=== PATIENT | female | born 1965 | race African-American/Black ===

== ENCOUNTER 2018-04-23 22:47 | Emergency (ER) | payer SELFPAY ==
[2018-04-23 23:00] VITALS: BP 149/73; PULSE 98; TEMP 98.1; BMI 27.4
--- NOTE | 2018-04-23 23:17 | PDOC ---
Attending Attestation - HPI HPI: 04/23/18 23:45 The patient is a 52 year old female with a significant PMH of HTN who presents to the emergency department with a mouse bite prior to arrival. Patient states she was walking in the dark when she suddenly felt the mouse bite on her right foot. The patients bite is not actively bleeding in the ER. Patients last tetanus was one year ago. Patient denies fever. She denies swelling or warmth to the area. Allergies: NKA Past surgical history: None reported. Social history: No reported alcohol, drug or cigarette use. <Stormy Benson - Last Filed: 04/23/18 23:45> - Physicial Exam PE: 04/24/18 00:19 + very small puncture wound to lateral foot. No signs of infection, no active bleeding. - Medical Decision Making 04/24/18 01:13 Pt presents to the ED with puncture wound to the foot after bitten by a mouse. wound is low risk for infection, but given that it is on the foot, will treat with short course of antibioitcs. Will discharge home. <Radha Mejia - Last Filed: 04/24/18 01:14>
--- NOTE | 2018-04-23 23:18 | PDOC ---
History of Present Illness - General Chief Complaint: Bite Stated Complaint: BIT BY RAT Time Seen by Provider: 04/23/18 23:17 History Source: Patient Exam Limitations: No Limitations - History of Present Illness Initial Comments: 04/23/18 23:42 52 yo F with a hx of HTN presents to the ED s/p mouse bite to the left lateral foot. Occurred at approximately 10 pm when walking bearfoot in her daughters home. She denies fever/chills, nausea/vomiting, paresthesia in the left foot, decreased motor function in the left foot, and pain. She states her last tetanus was 1 year ago. Denies the following: visual changes, headaches, sOB, chest pain, abdominal pain, dysuria, hematuria, hematochezia, melena, and leg pain/swelling. Pmhx: HTN Shx: ex lap for ectopic 2010 Meds: nifedipine, HCTZ Allergies: NKDA Social: Denies tobacco, alcohol, and substance abuse. Past History - Past Medical History Allergies/Adverse Reactions: Allergies Allergy/AdvReac Type Severity Reaction Status Date / Time No Known Allergies Allergy Verified 04/23/18 22:57 Home Medications: Ambulatory Orders Sulfamethoxazole/Trimethoprim [Bactrim Ds -] 1 tab PO BID #10 tablet 04/23/18 Anemia: No Cardiac Disorders: No CVA: No COPD: No CHF: No DVT: No Dementia: No Diabetes: No HTN: Yes - Surgical History Abdominal Surgery: No Appendectomy: No Cardiac Surgery: No Cholecystectomy: No Gastric Stapling: No GI Surgery: No - Suicide/Smoking/Psychosocial Hx Smoking History: Never smoked Information on smoking cessation initiated: No Hx Alcohol Use: No Drug/Substance Use Hx: No Substance Use Type: None Review of Systems - Review of Systems Able to Perform ROS?: Yes Is the patient limited [place] proficient: No Constitutional: No: Chills, Diaphoresis, Fever, Malaise, Weakness HEENTM: No: Recent change in vision, Ear Pain, Nose Pain, Throat Pain, Mouth Pain, Difficulty Swallowing Respiratory: No: Cough, Shortness of Breath, Hemoptysis Cardiac (ROS): No: Chest Pain, Lightheadedness, Palpitations, Syncope ABD/GI: No: Constipated, Diarrhea, Difficulty Swallowing, Nausea, Poor Fluid Intake, Rectal Bleeding, Vomiting, Tarry Stools : No: Burning, Dysuria, Flank Pain, Hematuria Musculoskeletal: No: Back Pain, Joint Pain, Joint Swelling, Muscle Pain, Muscle Weakness, Joint Stiffness Integumentary: Yes: Lesions (right foot lateral from bite.). No: Bruising, Erythema, Pruritus, Rash Neurological: No: Headache, Numbness, Paresthesia, Tingling, Tremors, Weakness, Ataxia Psychiatric: No: Stressors Endocrine: No: Unexplained Weight Gain Hematologic/Lymphatic: No: Anemia *Physical Exam - Vital Signs Last Vital Signs Temp Pulse Resp BP Pulse Ox 98.1 F 98 H 20 149/73 97 04/23/18 22:57 12 22:57 04/23/18 22:57 04/23/18 22:57 04/23/18 22:57 - Physical Exam General Appearance: Yes: Nourished, Appropriately Dressed HEENT: positive: EOMI, [place], Normal Voice, Symmetrical, Hearing Grossly Normal. negative: Scleral Icterus (R), Scleral Icterus (L), Nasal Congestion, Excessive drooling Neck: positive: Trachea midline. negative: Tender, Lymphadenopathy (R), Lymphadenopathy (L), Tender lateral, Tender midline Respiratory/Chest: positive: Lungs Clear, Normal Breath Sounds. negative: Chest Tender, Respiratory Distress, Accessory Muscle Use, Crackles, Rales, Rhonchi, Stridor, Wheezing Cardiovascular: positive: Regular Rhythm, Regular Rate, S1, S2. negative: Systolic Murmur Gastrointestinal/Abdominal: positive: Normal Bowel Sounds, Flat, Soft. negative : Tender, Protuberent, Distended Lymphatic: negative: Adenopathy Musculoskeletal: positive: Normal Inspection. negative: CVA Tenderness Extremity: positive: Normal Capillary Refill, Normal Range of Motion, Other ( puncture bite with residual dried blood on the lateral aspect of right foot at base of 5th MCP. no active bleeding. no tenderness to palpation.). negative: Tender Integumentary: positive: Normal Color, Dry, Warm Neurologic: positive: follow up clerk II-XII NML intact, Fully Oriented, Alert, Normal Mood/ Affect, Normal Response, Motor Strength 5/5. negative: Sensory Deficit Moderate Sedation - Procedure Monitoring Vital Signs: Procedure Monitoring Vital Signs Temperature 98.1 F 04/23/18 22:57 Pulse Rate 98 H 04/23/18 22:57 Respiratory Rate 20 04/23/18 22:57 Blood Pressure 149/73 04/23/18 22:57 O2 Sat by Pulse Oximetry (%) 97 04/23/18 22:57 Medical Decision Making - Medical Decision Making 04/24/18 22:21 52 yo F with a hx of HTN presents to the ED s/p mouse bite to the left lateral foot. Initial vitals Initial Vital Signs Temp Pulse Resp BP Pulse Ox 98.1 F 98 H 20 149/73 97 04/23/18 22:57 04/23/18 22:57 04/23/18 22:57 04/23/18 22:57 04/23/18 22:57 Work up: ddx: clean wound with tetanus vaccine 1 year ago. given that its at foot, will prescribe bactrim to cover for conversion to bacterial infection. will have her follow up with PMD. no neuro deficits noted on exam. low risk for rabies. Dispo: Discharge *DC/Admit/Observation/Transfer Diagnosis at time of Disposition: Bitten by mouse Qualifiers: Encounter type: initial encounter Qualified Code(s): W53.01XA - Bitten by mouse , initial encounter - Discharge Dispostion Disposition: HOME Decision to Admit order: No - Prescriptions Prescriptions: Sulfamethoxazole/Trimethoprim [Bactrim Ds -] 1 tab PO BID #10 tablet - Referrals Referrals: [facility] [place] [facility] [place] [Provider Group] - Patient Instructions Printed Discharge Instructions: How to Care for a Wild Animal Bite Additional Instructions: You were seen in the emergency department for the evaluation of your wound. We prescribed bactrim on outpatient basis, please take this as prescribed. Please follow up with your primary medical doctor or our referred doctor group within 72 hours after discharge for follow up care. Please return to the emergency department if you have worsening pain or develop new concerning symptoms such as fever/chills, nausea vomiting, loss of sensation and function in the left leg /foot, and/or confusion. Thank you. - Post Discharge Activity
== END 2018-04-24 00:16 | disposition home or self-care (01) ==
LOC: JER 22:47
DX: S91.351A Open bite, right foot, initial encounter (principal); S91.331A Puncture wound without foreign body, right foot, initial encounter; W53.01XA Bitten by mouse, initial encounter; Y93.89 Activity, other specified; Y92.038 Other place in apartment as the place of occurrence of the external cause; Y99.8 Other external cause status
CPT/HCPCS: 99281-25